=== PATIENT | male | born 1930 | race Asian ===

== ENCOUNTER → 2016-08-03 | Outpatient (CLI) | payer MEDICARE, MEDICAID ==
[~2016-08-03] MED LIST: AMLO-512 PO; HYDR25TA PO; TAMS0.4C32 PO
== END | disposition home or self-care (01) ==
LOC: RADPV 10:03
PROVIDERS: ATTEND Internal Medicine
DX: J98.11 Atelectasis (principal); I70.0 Atherosclerosis of aorta
CPT/HCPCS: 71020